=== PATIENT | male | born 1955 | race Caucasian/White ===

== ENCOUNTER → 2020-01-29 20:21 | Outpatient (CLI) | payer OTHER, SELFPAY | PROVIDERS: PCP Family Medicine; Visit Provider Family Medicine | DX: R06.83 Snoring (principal); R53.83 Other fatigue; R29.818 Other symptoms and signs involving the nervous system | CPT/HCPCS: 95810 ==

== ENCOUNTER → 2022-10-13 | Outpatient (CLI) | payer MEDICARE, BC, SELFPAY | END | disposition home or self-care (01) | PROVIDERS: PCP Family Medicine; Referring Provider Internal Medicine Hematology & Oncology; Visit Provider Internal Medicine Hematology & Oncology | DX: C90.00 Multiple myeloma not having achieved remission (principal) | CPT/HCPCS: 86850; 86900; 86901 ==

== ENCOUNTER → 2023-01-16 | Outpatient (CLI) | payer MEDICARE, BC, SELFPAY ==
[2023-01-16 13:45] VITALS: PULSE 102; PULSE 106; PULSE 107; PULSE 108; PULSE 80; PULSE 87; PULSE 99; O2SAT 90; O2SAT 91; O2SAT 92; O2SAT 94; O2SAT 95
--- NOTE | 2023-01-17 11:23 | PCM.PSN.6M ---
PSN 6 Minute Walk Test 6 Minute Walk Test 6 Minute Walk Test: 6 Minute Walk Test PSN:6-Minute Walk Test Start: 01/16/23 14:11 Freq: Status: Active Protocol: [id number] Document 01/16/23 13:45 EW (Rec: 01/16/23 14:19 EW [id number]) 6 Minute Walk Test Date Performed 01/16/23 Time Performed 13:45 Height 5 ft 9 in Weight: 218 lb Weight in Pounds [address]: Kimmie Patel [employer] Assistive device used: None Pre-test Oxygen Delivery Method Room Air Pulse Ox 94 Pulse Rate (60-100) 80 Dyspnea Sean Scale (0-10) 0.5 Exertion Sean Scale (6-20) 8 1st minute Oxygen Delivery Method Room Air Pulse Ox 90 Pulse Rate (60-100) 102 H 2nd minute Oxygen Delivery Method Room Air Pulse Ox 90 Pulse Rate (60-100) 99 3rd minute Oxygen Delivery Method Room Air Pulse Ox 91 Pulse Rate (60-100) 106 H 4th minute Oxygen Delivery Method Room Air Pulse Ox 90 Pulse Rate (60-100) 107 H 5th minute Oxygen Delivery Method Room Air Pulse Ox 92 Pulse Rate (60-100) 106 H 6th minute Oxygen Delivery Method Room Air Pulse Ox 92 Pulse Rate (60-100) 108 H Post-test Oxygen Delivery Method Room Air Pulse Ox 95 Pulse Rate (60-100) 87 Dyspnea Sean Scale (0-10) 2 Exertion Sean Scale (6-20) 11 Full Laps Walked 22 Partial Lap, Number of Tiles Walked 0 Total Distance Walked (ft) 1298 Interpretation Interpretation: The patient ambulated 1298 feet over the course of 6 minutes beginning on room air without assistive devices. Pretesting oxygen saturation was noted to be 94% on room air. With ambulation, the genesis oxygen saturation was 90%. There was no significant exertional oxygen desaturation. Recommendations Recommendations: There is no indication for the use of supplemental oxygen at this time.
== END | disposition home or self-care (01) ==
LOC: PSN 13:41
PROVIDERS: PCP Family Medicine; Referring Provider Nurse Practitioner Acute Care; Visit Provider Nurse Practitioner Acute Care
DX: R06.09 Other forms of dyspnea (principal)
CPT/HCPCS: 94618

== ENCOUNTER → 2023-01-18 | Outpatient (CLI) | payer MEDICARE, BC, SELFPAY ==
--- NOTE | 2023-01-19 10:07 | PFT ---
INTRODUCTION: The patient is a 67-year-old male who presents for pulmonary function studies secondary to a diagnosis of dyspnea. Respiratory therapy reported good patient effort. However, acceptability criteria was not met for 3 different attempts for pre and post spirometry despite good patient effort. Bronchodilators were used during testing. INTERPRETATION: Forced expiration spirometry demonstrates no evidence of a large airways obstructive ventilatory defect. There was no significant response to aerosolized bronchodilators. Spirograms are of good quality and plateau normally. Body plethysmography was performed and revealed a decreased TLC to 5.48 L, 80% of predicted, indicative of a mild restrictive ventilatory impairment. Diffusing capacity by single breath CO was within normal limits. IMPRESSION: Isolated mild restrictive ventilatory impairment with preserved diffusing capacity.
== END | disposition home or self-care (01) ==
LOC: PSN 09:36
PROVIDERS: PCP Family Medicine; Referring Provider Nurse Practitioner Acute Care; Visit Provider Nurse Practitioner Acute Care
DX: R06.09 Other forms of dyspnea (principal)
CPT/HCPCS: 94060; 94726; 94729

== ENCOUNTER → 2024-04-07 | Outpatient (CLI) | payer MEDICARE, BC, SELFPAY | END | disposition home or self-care (01) | LOC: SL 19:47 | PROVIDERS: PCP Family Medicine; Referring Provider Family Medicine; Visit Provider Family Medicine | DX: G47.33 Obstructive sleep apnea (adult) (pediatric) (principal) | CPT/HCPCS: 95811 ==

== ENCOUNTER → 2024-07-17 | Outpatient (CLI) | payer MEDICARE, BC, SELFPAY ==
--- NOTE | 2024-07-17 12:55 | CT_ITS ---
PROCEDURE: SINUS/FACIAL BONE REASON FOR EXAM: History of chronic sinusitis. TECHNIQUE: CT of the paranasal sinuses without contrast. Axial, coronal and sagittal reconstruction was obtained as well. COMPARISON: None. FINDINGS: Frontal: Frontal sinuses and frontoethmoidal recesses appear clear. Ethmoid: Partial opacification of the left ethmoid sinus. Sphenoid: Sphenoid sinuses and sphenoethmoidal recesses appear clear. Maxillary: Opacification of the left maxillary sinus. There is compromise of the left ostiomeatal complex due to the mucosal hypertrophy. Turbinates: Hypertrophy of the left inferior turbinate. Nasal Septum: Minimal deviation of the nasal septum towards the right side of the midline. Mastoids/Middle Ears: Clear at visualized levels. Visualized intracranial structures are unremarkable. CT/Sinus/Facial Bone IMPRESSION: Opacification of the left maxillary sinus and partial opacification of the left ethmoid sinus. One or more dose reduction techniques were used (e.g., Automated exposure contr ol, adjustment of the mA and/or kV according to patient size, use of iterative reconstruction technique). Reading Location: [id number]
== END | disposition home or self-care (01) ==
LOC: CT 12:53
PROVIDERS: PCP Family Medicine; Referring Provider Otolaryngology; Visit Provider Otolaryngology
DX: J32.9 Chronic sinusitis, unspecified (principal)
CPT/HCPCS: 70486